=== PATIENT | male | born 1975 | race Caucasian/White ===

== ENCOUNTER 2016-12-11 13:36 | Emergency (ER) | payer OTHER ==
[~2016-12-11] VITALS: Ht 175.3 cm; Wt 117.9 kg
[~2016-12-11 13:36] MED LIST: CATA0.1T PO
[2016-12-11 13:37] VITALS: BP 137/80
[2016-12-11] MEDS ORDERED: CYCL10TA PO (15:39)
[2016-12-11] MEDS ORDERED: NAPR500T PO (15:39)
== END 2016-12-11 15:49 | disposition home or self-care (01) ==
LOC: M ED 15:45
DX: M54.5 Low back pain (principal); G89.29 Other chronic pain; M62.830 Muscle spasm of back

== ENCOUNTER 2016-12-16 13:04 | Emergency (ER) | payer OTHER ==
[~2016-12-16] VITALS: Ht 175.3 cm; Wt 117.9 kg
[~2016-12-16 13:04] MED LIST changes: +CYCL10TA PO; +NAPR500T PO
[2016-12-16 16:07] LABS: ANION GAP 6 MEQ/L (8-16); BLOOD UREA NITROGEN 13 MG/DL (7-18); CALCIUM LEVEL 9.5 MG/DL (8.5-10.1); CARBON DIOXIDE LEVEL 29 MEQ/L (21-32); CHLORIDE LEVEL 104 MEQ/L (98-107); CREATININE FOR GFR 0.92 MG/DL (0.70-1.30); GLOMERULAR FILTRATION RATE > 60.0 (>60); GLUCOSE, FASTING 94 MG/DL (70-105); POTASSIUM SERUM 4.6 MEQ/L (3.5-5.1); SODIUM LEVEL 139 MEQ/L (136-145)
[2016-12-16] MEDS ORDERED: TYLE325C PO (17:09)
[2016-12-16] MEDS ORDERED: KETO10TAB PO (17:11)
[2016-12-16] MEDS ORDERED: CYCL10TA PO (17:15)
[2016-12-16] MEDS ORDERED: KETOROLAC 60 MG/2 ML VIAL (J1885) IM ONE (17:15)
[2016-12-16 17:35] VITALS: BP 122/80
--- NOTE | 2016-12-17 08:06 | REP ---
LUMBAR SPINE COMPLETE: 12/16/2016 CLINICAL HISTORY: Worsening low back pain. FINDINGS: No prior study. The five view show pedicles, spinous and transverse processes intact in the AP projection. The lower thoracic levels on the SI joints with sacral ala and foramina all unremarkable. Bilateral oblique views show no spondylolysis or spondylolisthesis with facets intact. There is a normal lumbar lordosis. Vertebral body heights and disc space heights are normal. A coned lateral view unremarkable. IMPRESSION: 1. Normal lumbar spine series. No compression fracture, degenerative changes, spondylolysis, facet arthritis or other acute finding. Signed by Howard Llanos MD 12/17/2016 08:42 A
== END 2016-12-16 17:37 | disposition home or self-care (01) ==
LOC: M ED 14:30
DX: M54.9 Dorsalgia, unspecified (principal); Z79.899 Other long term (current) drug therapy

== ENCOUNTER 2016-12-26 09:56 | Emergency (ER) | payer OTHER ==
[~2016-12-26] VITALS: Ht 175.3 cm; Wt 117.9 kg
[2016-12-26 09:56] VITALS: BP 139/82
[~2016-12-26 09:56] MED LIST changes: +KETO10TAB PO; +TYLE325C PO
[2016-12-26] MEDS ORDERED: NAPR500T2 PO (10:45)
[2016-12-26] MEDS ORDERED: NORCOTAB PO (10:45)
[2016-12-26] MEDS ORDERED: ROBA500T PO (10:45)
== END 2016-12-26 10:54 | disposition home or self-care (01) ==
LOC: M ED 10:13
DX: S29.019A Strain of muscle and tendon of unspecified wall of thorax, initial encounter (principal); X58.XXXA Exposure to other specified factors, initial encounter; Y92.39 Other specified sports and athletic area as the place of occurrence of the external cause; Y93.54 Activity, bowling; Y99.9 Unspecified external cause status

== ENCOUNTER → 2017-07-02 | Outpatient (REF) | payer OTHER ==
[~2017-07-02] MED LIST changes: +NAPR500T3 PO; +NORCOTAB PO; +ROBA500T PO
[2017-07-02 14:53] LABS: MEAN CORPUSCULAR HEMOGLOBIN 30.2 pg (27.0-33.0); MEAN CORPUSCULAR HGB CONC 34.3 g/dl (32.0-36.5); MEAN CORPUSCULAR VOLUME 87.8 fl (80.0-96.0); PLATELET COUNT, AUTOMATED 298 10^3/uL (150-450); RED CELL DISTRIBUTION WIDTH 13.5 % (11.5-14.5); WHITE BLOOD COUNT 8.9 10^3/uL (4.0-10.0)
[2017-07-02 16:02] LABS: ALBUMIN 4.1 GM/DL (3.2-5.2); ALBUMIN/GLOBULIN RATIO 1.37 (1.00-1.93); ALKALINE PHOSPHATASE 140 U/L (45-117); ALT/SGPT 37 U/L (12-78); ANION GAP 8 MEQ/L (8-16); AST/SGOT 19 U/L (15-37); BILIRUBIN,TOTAL 0.3 MG/DL (0.2-1.0); BLOOD UREA NITROGEN 8 MG/DL (7-18); CALCIUM LEVEL 8.7 MG/DL (8.5-10.1); CARBON DIOXIDE LEVEL 27 MEQ/L (21-32); CHLORIDE LEVEL 104 MEQ/L (98-107); CHOLESTEROL LEVEL 202 MG/DL (<200); CREATININE FOR GFR 0.94 MG/DL (0.70-1.30); GLOMERULAR FILTRATION RATE > 60.0 (>60); GLUCOSE, FASTING 84 MG/DL (70-105); POTASSIUM SERUM 4.8 MEQ/L (3.5-5.1); SODIUM LEVEL 139 MEQ/L (136-145); TOTAL PROTEIN 7.1 GM/DL (6.4-8.2); TRIGLYCERIDES LEVEL 112 MG/DL (<150)
== END ==
LOC: M LAB REF 14:29
PROVIDERS: ATTEND Nurse Practitioner Family
DX: E78.5 Hyperlipidemia, unspecified (principal)

== ENCOUNTER 2018-11-16 14:10 | Emergency (ER) | payer OTHER ==
[~2018-11-16] VITALS: Ht 177.8 cm; Wt 95.5 kg
[~2018-11-16 14:10] MED LIST changes: +NAPR-50 PO; +NAPR-885 PO; -NAPR500T PO; -NAPR500T3 PO
[2018-11-16] MEDS ORDERED: SERT-138 (14:22)
[2018-11-16] MEDS ORDERED: BUPR150T3 (14:22)
[2018-11-16] MEDS ORDERED: SUBO8MIS (14:22)
--- NOTE | 2018-11-16 14:49 | REP ---
PA and lateral chest: There are no comparisons. The lung maher are clear. The cardiac size is normal. The marv, mediastinum, and skeletal structures are unremarkable. Impression: Negative PA and lateral chest. Electronically Signed by Angel Cee MD 11/16/2018 02:41 P
[2018-11-16] MEDS ORDERED: CYCL10TA PO (15:25)
[2018-11-16] MEDS ORDERED: NAPR-50 PO (15:25)
[2018-11-16] MEDS ORDERED: NAPROXEN 250 MG TAB PO ONE (15:30)
[2018-11-16 15:47] VITALS: BP 149/81
== END 2018-11-16 15:49 | disposition home or self-care (01) ==
LOC: M ED 14:10
DX: S20.219A Contusion of unspecified front wall of thorax, initial encounter (principal); V43.52XA Car driver injured in collision with other type car in traffic accident, initial encounter; Y92.410 Unspecified street and highway as the place of occurrence of the external cause; F17.200 Nicotine dependence, unspecified, uncomplicated; Z79.899 Other long term (current) drug therapy

== ENCOUNTER 2019-02-16 15:17 | Outpatient (RCR) | payer OTHER ==
[~2019-02-16 15:17] MED LIST changes: +BUPR150T3; +HYDR-3715 PO; -NAPR-50 PO; +NAPR-837 PO; -NORCOTAB PO; +SERT-138; +SUBO8MIS
== END 2019-03-08 ==
LOC: M PT 15:17
PROVIDERS: ATTEND Family Medicine
DX: S76.311A Strain of muscle, fascia and tendon of the posterior muscle group at thigh level, right thigh, initial encounter (principal); W18.30XA Fall on same level, unspecified, initial encounter; Y92.009 Unspecified place in unspecified non-institutional (private) residence as the place of occurrence of the external cause

== ENCOUNTER → 2019-08-26 | Outpatient (REF) | payer OTHER | LOC: M SFHCLERA 18:08 | PROVIDERS: ATTEND Nurse Practitioner Family | DX: J02.9 Acute pharyngitis, unspecified (principal) ==

== ENCOUNTER 2023-03-21 09:33 | Emergency (ER) | payer OTHER ==
[~2023-03-21] VITALS: Ht 170.2 cm; Wt 107.4 kg
[~2023-03-21 09:33] MED LIST changes: +BUPR150T12; -BUPR150T3; +CYCL-707 PO; -CYCL10TA PO
[2023-03-21] MEDS ORDERED: CIPR7.5D5 AD (11:00)
[2023-03-21 11:06] VITALS: BP 140/82; TEMP 97.9; O2SAT 98
== END 2023-03-21 11:15 | disposition home or self-care (01) ==
LOC: M ED 09:33
DX: H65.01 Acute serous otitis media, right ear (principal); F17.200 Nicotine dependence, unspecified, uncomplicated; Z79.2 Long term (current) use of antibiotics; Z79.899 Other long term (current) drug therapy

== ENCOUNTER 2023-05-25 07:09 | Emergency (ER) | payer OTHER ==
[~2023-05-25] VITALS: Ht 177.8 cm; Wt 106.0 kg
[~2023-05-25 07:09] MED LIST changes: +CIPR7.5D5 AD
[2023-05-25] MEDS ORDERED: PARO20TA3 PO (07:35)
[2023-05-25] MEDS ORDERED: ACET-683 PO (07:35)
[2023-05-25] MEDS ORDERED: AMLO1TAB24 PO (07:35)
[2023-05-25 08:31] VITALS: BP 130/65; TEMP 96.9; O2SAT 99
[2023-05-25] MEDS ORDERED: DEBR6.5S4 OTIC (08:32)
[2023-05-25] MEDS ORDERED: CIPR7.5D5 AS (08:32)
== END 2023-05-25 08:45 | disposition home or self-care (01) ==
LOC: M ED 07:09
DX: H60.92 Unspecified otitis externa, left ear (principal); Z79.2 Long term (current) use of antibiotics; Z79.1 Long term (current) use of non-steroidal anti-inflammatories (NSAID); Z79.899 Other long term (current) drug therapy